=== PATIENT | female | born 1990 | race Caucasian/White ===

== ENCOUNTER 2016-05-06 08:54 | Emergency (ER) | payer OTHER ==
[~2016-05-06] VITALS: Ht 154.9 cm; Wt 62.1 kg
[2016-05-06 09:52] VITALS: BP 139/71
[2016-05-06] MEDS ORDERED: AMOX500C PO (10:16)
[2016-05-06] MEDS ORDERED: LIDO1SOL7 OR (10:16)
[2016-05-06] MEDS ORDERED: PRED20TA PO (10:16)
== END 2016-05-06 10:30 | disposition home or self-care (01) ==
LOC: M ED 10:25
DX: J03.90 Acute tonsillitis, unspecified (principal); Z79.52 Long term (current) use of systemic steroids; Z88.1 Allergy status to other antibiotic agents

== ENCOUNTER 2017-01-22 07:59 | Emergency (ER) | payer OTHER ==
[~2017-01-22] VITALS: Ht 157.5 cm; Wt 65.0 kg
[~2017-01-22 07:59] MED LIST: AMOX500C PO; LIDO1SOL7 OR; PRED20TA PO
[2017-01-22] MEDS ORDERED: TYLE325T5 PO (08:13)
--- NOTE | 2017-01-22 09:52 | REP ---
Head CT without contrast: History: Trauma. Comparison study: No comparison study. CT findings: Bone window settings demonstrate an intact bony calvarium. There is no evidence of skull fracture or incidental bony calvarial lesion. The visualized paranasal sinuses appear clear. No intraorbital abnormality is seen. On soft tissue window setting images; the lateral, third, and fourth ventricles are normal in size and position. Maurer-white differentiation pattern is normal above and below the tentorium. There are is no evidence of intracranial hemorrhage. No mass, edema, infarction, or midline shift is seen. No extra-axial fluid collection is appreciated. Impression: Negative noncontrast head CT. Signed by Missael Mcdonald MD 01/22/2017 09:44 A
--- NOTE | 2017-01-22 10:00 | REP ---
CT STUDY OF THE MAXILLOFACIAL REGION WITHOUT IV CONTRAST: HISTORY: Trauma. TECHNIQUE: Helical scanning is acquired. Coronal and sagittal multiplanar re-formation images are generated. CT FINDINGS: There is no evidence of cranial facial fracture. No significant hematoma is seen. No intraorbital hematoma is seen. There is a mucous retention cyst on the roof of the right maxillary sinus measuring 14 mm in greatest diameter. No orbital floor fracture is appreciated. Extraocular muscles are unremarkable and symmetric. The maxillary sinuses are otherwise clear. Bony sinus margins are intact. Nasal turbinates are normal and symmetric. IMPRESSION: 14 mm mucous retention cyst in the roof of the maxillary sinus on the right. Otherwise negative maxillofacial CT study. No fracture seen. Signed by Missael Mcdonald MD 01/22/2017 12:38 P
[2017-01-22 10:21] VITALS: BP 127/70
== END 2017-01-22 10:23 | disposition home or self-care (01) ==
LOC: M ED 09:14
DX: S05.11XA Contusion of eyeball and orbital tissues, right eye, initial encounter (principal); J34.1 Cyst and mucocele of nose and nasal sinus; W50.0XXA Accidental hit or strike by another person, initial encounter; Y92.019 Unspecified place in single-family (private) house as the place of occurrence of the external cause; Y93.89 Activity, other specified; Y99.8 Other external cause status; Z88.2 Allergy status to sulfonamides